=== PATIENT | male | born 1985 | race Caucasian/White ===

== ENCOUNTER 2019-04-06 21:27 | Emergency (ER) | payer SELFPAY ==
[2019-04-06] MEDS ORDERED: Naloxone HCl 0.4 mg/ml Vial ONE (21:33)
[2019-04-06 21:59] LABS: #Basophils 0.2 thou/uL (0.0-0.2); #Eosinphils 0.2 thou/uL (0.0-0.7); #Lymphocytes 3.1 thou/uL (1.20-3.40); #Monocytes 0.7 thou/uL (0.11-0.59); #Neutrophils 4.4 thou/uL (1.40-6.50); %Basophils 1.9 % (0.0-1.0); %Eosinophils 2.2 % (0.0-10.0); %Lymphocytes 35.9 % (21.0-51.0); %Monocytes 8.2 % (0.0-10.0); %Neutrophils 51.8 % (42.0-75.0); Hemoglobin 13.6 g/dL (14.0-18.0); Mean Corpuscular Hemoglobin 31.6 pg (27.0-31.0); Mean Corpuscular Volume 92.9 fL (78.0-98.0); Mean Platelet Volume 9.4 fL (7.4-10.4); Platelet Count 164 thou/uL (130-400); RBC Distribution Width 11.9 % (11.5-14.5); Red Blood Cell (RBC) Count 4.32 mill/uL (4.70-6.10); White Blood Cell (WBC) Count 8.5 thou/uL (4.8-10.8)
[2019-04-06 22:10] LABS: ALT (SGPT) 31 U/L (8-55); AST (SGOT) 27 U/L (5-34); Acetaminophen Less than 6.0 mcg/mL (10.0-30.0); Albumin 3.6 g/dL (3.5-5.0); Alcohol 158 mg/dL (Less than 10); Alkaline Phosphatase 65 U/L (40-110); Anion Gap 15 mmol/L (10-20); BUN (Urea Nitrogen) 9 mg/dL (8.9-20.6); Bilirubin, Total 0.3 mg/dL (0.2-1.2); Calc. Creatinine Clearance 0 mL/min (70-130); Carbon Dioxide 20 mmol/L (22-29); Chloride 110 mmol/L (98-107); Estimated GFR-MDRD Greater than 90; Globulin 2.3 g/dL (2.4-3.5); Glucose 139 mg/dL (70-105); Potassium 3.6 mmol/L (3.5-5.1); Protein, Total 5.9 g/dL (6.0-8.3); Salicylate Less than 8.0 mg/dL (15.0-30.0); Sodium 141 mmol/L (136-145)
[2019-04-06 22:14] LABS: Amphetamine Detected (NotDetected); Benzodiazepine Screen Not Detected (NotDetected); Cocaine Metabolite Screen Not Detected (NotDetected); Methamphetamine Detected (NotDetected); Opiate Screen Not Detected (NotDetected); Phencyclidine (PCP) Not Detected (NotDetected); THC/Cannabinoid Screen Not Detected (NotDetected); Tricyclic Screen Detected (NotDetected)
[2019-04-06 22:15] LABS: Barbiturates Screen Not Detected (NotDetected); Medtox Control Line Valid? VALID (VALID); Methadone Not Detected (NotDetected); Oxycodone Screen Not Detected (NotDetected)
--- NOTE | 2019-04-06 22:27 | RAD ---
PORTABLE CHEST: 04/06/19 An AP portable film at 2219 shows a normal sized heart and clear lungs. No infiltrate, effusion, maira a or congestion was seen. IMPRESSION: No acute findings. POS: HOME
--- NOTE | 2019-04-06 22:29 | CT ---
CT OF THE BRAIN WITHOUT CONTRAST: 04/06/19 The ventricles are normal in size with no shift. No intracranial bleeding, mass or sign of stroke w as found. No extra-axial hematoma was seen. The skull appears intact with no sign of fracture. The mastoid air cells are clear, as is the sphenoi d sinus. The right maxillary sinus is underdeveloped and has some mucosa thickening in it. The left maxillary sinus is somewhat underdeveloped as well. IMPRESSION: No acute intracranial findings. POS: HOME
== END 2019-04-06 23:37 | disposition short-term general hospital (02) ==
LOC: BURERS 21:27
DX: F10.129 Alcohol abuse with intoxication, unspecified (principal); F15.10 Other stimulant abuse, uncomplicated; R00.0 Tachycardia, unspecified; Y90.6 Blood alcohol level of 120-199 mg/100 ml
CPT/HCPCS: 51701; 70450; 71045; 80053; 80306; 80307; 84484; 85025; 93005; 96360; J2310